=== PATIENT | male | born 1985 | race Caucasian/White ===

== ENCOUNTER 2022-02-10 06:46 | Emergency (ER) | payer SELFPAY ==
[2022-02-10 06:48] VITALS: BMI 22.3
[2022-02-10 06:50] VITALS: BP 126/79; PULSE 89; RESP 18; TEMP 36.6; O2SAT 96
--- NOTE | 2022-02-10 06:51 | ED_ITS ---
HPI - Extremity Problem General: Chief complaint: Extremity Injury, Upper Stated complaint: left thumb pain Time Seen by Provider: 02/10/22 06:51 Source: patient Mode of arrival: ambulatory History of Present Illness: 36-year-old male presents via EMS with a blood blister on his left thumb on medial aspect started 2 days ago he tried to drain it and it recurred. He has not had any fever sweats or chills no purulent drainage no surrounding erythema or redness. Complaint: other (blood blister L thumb) Onset (ago): day(s) Location: left Quality: aching Radiation: none Relieving factors: nothing Exacerbating factors: nothing Associated symptoms: Deny fever(s) or rash Review of Systems Const: Denies: fever(s), chills, body aches, change in appetite, fatigue or malaise Skin/Breast: Reports: erythema and skin tenderness; Denies: rash or pruritus PFS ED PFSH: Medical History (Updated 02/10/22 @ 07:11 by Ar Christensen DO) No significant past medical history Surgical History (Updated 02/10/22 @ 07:11 by Ar Christensen DO) No significant past surgical history Physical Exam Extremity: OTHER: Approximately 1-1/2 cm round blister on the medial aspect of the base of the proximal phalanx. There is no surrounding erythema redness there is no epitrochlear lymph nodes. There is no lymphangitis. The skin was incised with the bevel of an 18-gauge needle there was serosanguineous drainage with no purulence. Was then irrigated and bandaged with a topical antibiotic tetanus updated Course Vital Signs: Vital signs: Vital Signs Temperature 97.9 F 02/10/22 06:50 Pulse Rate 89 02/10/22 06:50 Respiratory Rate 18 02/10/22 06:50 Blood Pressure 126/79 02/10/22 06:50 Pulse Oximetry 96 02/10/22 06:50 Oxygen Delivery Me thod 02/10/22 06:50 MDM - Extremity (Nontraumatic) Medical Decision Making Tetanus updated. Wound care instructions given topical antibiotic ointment twice daily. Follow-up as needed. Discharge Plan Discharge Patient Disposition: Home Clinical Impression: Blister Condition: Stable Prescriptions: New mupirocin 2 % ointment 1 applic topical BID Qty: 15 0RF Discharge Orders: Discharge ED (Routine); Ordered 02/10/22 Ordered By: Ar Christensen Discharge Diet: Usual diet Discharge Activity: Resume usual activity Patient Instructions: Blister (ED), Opioid Safety, Pain Management Activity Restrictions/Additional Instructions: Apply topical antibiotic ointment twice a day and keep blister covered with a Band-Aid. Coding Level of Care Code ED [employer] for Andrea Garcia
[2022-02-10] MEDS: tetanus-dipt-pertussis 0.5 mL SDV IM (07:17)
== END 2022-02-10 07:22 | disposition home or self-care (01) ==
PROVIDERS: Emergency Provider Family Medicine
DX: S60.322A Blister (nonthermal) of left thumb, initial encounter (principal); X58.XXXA Exposure to other specified factors, initial encounter; Z23 Encounter for immunization
CPT/HCPCS: 10060; 90471; 90715; 99283